=== PATIENT | female | born 1940 | race Caucasian/White ===

== ENCOUNTER 2024-05-24 07:05 | Emergency (ER) | payer MEDICARE ==
[~2024-05-24] VITALS: Ht 170.2 cm; Wt 56.5 kg
[~2024-05-24 07:05] MED LIST: AMLODIPINE BES2.5 MG PO; BRIMONIDINE TART5 ML OPTH; DORZOLAMIDE-TIM10 ML; HYDROCODON-ACE1 EA10 PO
[2024-05-24 07:38] LABS: BASOPHILS 0.5 % (0-2); EOSINOPHILS 2.6 % (0-6); HEMATOCRIT 35.7 % (35.0-50.0); HEMOGLOBIN 11.9 g/dL (12.0-18.0); LYMPHOCYTES 12.5 % (24-44); MCH 29.2 (27-36); MCHC 33.3 g/dl (30-36); MCV 87.6 fl (81-99); MONOCYTES 15.8 % (0-12); NEUTROPHILS 68.6 % (39-80); PLATELET COUNT 320 K/uL (140-440); RBC 4.07 M/ul (4.3-5.7); RDW 16.5 (10.5-15.0)
[2024-05-24] MEDS ORDERED: SODIUM CHLORIDE 0.9% 1,000 ML IV ONE (07:45)
[2024-05-24 07:50] LABS: ALBUMIN 3.1 g/dL (3.4-5.0); ALBUMIN/GLOBULIN RATIO 0.97 (1.1-2.4); BILIRUBIN, TOTAL 0.6 ng/dL (0.2-1.0); BUN/CREATININE RATIO 24.13 (6.0-28.6); CREATININE, SERUM 0.58 mg/dL (0.55-1.02); MAGNESIUM 1.7 mg/dL (1.8-2.4); PROTEIN, TOTAL 6.3 g/dL (6.4-8.2)
[2024-05-24] MEDS ORDERED: SODIUM CHLORIDE 0.9% 1,000 ML IV PRN (08:30)
[2024-05-24 09:28] LABS: BILIRUBIN, URINE NEGATIVE (negative); BLOOD/HGB, URINE MODERATE (Negative); KETONE, URINE SMALL (Negative); LEUK ESTERASE, URINE NEGATIVE (negative); NITRITE, URINE NEGATIVE (negative); PH, URINE 6.5 (5-7)
[2024-05-24 09:35] LABS: BACTERIA, URINE 1+ /hpf (negative); CASTS, URINE NONE SEEN \\lpf; COLLECTION TYPE, URINE CLEAN CATCH; CRYSTALS, URINE AMORPHOUS URATES 3+ (0-1+); REFLEX CULTURE, URINE No (No)
[2024-05-24 10:14] VITALS: BP 144/78
== END 2024-05-24 10:16 | disposition home or self-care (01) ==
LOC: ED 07:05
PROVIDERS: Emergency Medicine
DX: E86.0 Dehydration (principal); C80.1 Malignant (primary) neoplasm, unspecified; I10 Essential (primary) hypertension; M81.0 Age-related osteoporosis without current pathological fracture; Z79.899 Other long term (current) drug therapy
CPT/HCPCS: 36415; 71045; 80053; 81001; 83735; 85025; 96360; 99284-25; J7030